=== PATIENT | male | born 1970 | race Caucasian/White ===

== ENCOUNTER 2016-06-14 20:34 | Emergency (ER) | payer SELFPAY ==
[2016-06-14 20:35] VITALS: BMI 25.7
[2016-06-14 21:24] VITALS: TEMP 98.6
--- NOTE | 2016-06-14 22:13 | EDPRACDOC ---
- General Information Chief Complaint: Generalized Weakness Stated Complaint: VISION CHANGES/NAUSEA Time Seen by Provider: 06/14/16 22:07 Information Source: Patient Mode of Arrival: Car Home Medications: Home Medications Citalopram (anti-depressant) [Celexa] 40 mg PO DAILY 11/18/13 Insulin Regular, Human [Novolin R] 6 unit SQ DAILY 11/18/13 Clopidogrel Bisulfate [Plavix] 75 mg PO DAILY 11/25/14 Metoprolol Tartrate 25 mg PO BID 11/25/14 Aspirin (Enteric Coated) [Ecotrin] 81 mg PO DAILY 12/24/14 Atorvastatin Calcium [Lipitor] 80 mg PO QHS 12/24/14 Lisinopril [Zestril] 2.5 mg PO DAILY 12/24/14 Nitroglycerin [Nitrostat] 0.4 mg SL Q5MX3 PRN 12/24/14 NPH, Human Insulin Isophane [Novolin N] 30 unit SQ DAILY 04/03/16 Biotin 1 mg PO DAILY 06/14/16 Cinnamon Bark [Cinnamon] 500 mg PO DAILY 06/14/16 Cyanocobalamin (Vitamin B-12) [Vitamin B-12 (cyanocobalamin)] 1,000 mcg SL DAILY 06/14/16 Ergocalciferol (Vitamin D2) [Vitamin D] 400 unit PO DAILY 06/14/16 [place]'s Wort 300 mg PO DAILY 06/14/16 Allergies/Adverse Reactions: Allergies Allergy/AdvReac Type Severity Reaction Status Date / Time No Known Allergies Allergy Verified 04/03/16 19:47 - History of Present Illness Onset: sailboat [employer] HPI: PT STARTED FEELING BAD ABOUT 1999 WHILE AT WORK. FELT LIKE BLOOD SUGAR WAS LOW. HAD VT IN 2013. PT HAD SOB. NAUSEA AND DIAPHORESIS. PT ATE 1530 BEFORE WORK (SOUP). LAST INSULIN 1720 - 6 REGULAR, 30 NPH. ED Past Medical History - Patient Medical History Cardiac History: Reports: Coronary Artery Disease, Hypertension, Heart Attack, Cardiac Catheterization, Hypercholesterolemia GI/ History: Reports: Pancreatitis Musculoskeletal History: Reports: Arthritis Psychological History: Reports: Depression, Bipolar Disorder Systemic History: Reports: Diabetes Surgical History: Reports: Cardiac Catheterization - Family Medical History Reports: Diabetes, Cancer. Denies: Hypertension, Stroke, Cardiac Disorders - Social Medical History Smoking Status: Never smoker - Physical Exam Constitutional: Other (GROGGY. MILD CONFUSION) Oriented to: Time, Person, Place Last recorded Vital Signs: Last Vital Signs Temp 98.6 F 06/14/16 21:20 Pulse 60 06/14/16 21:20 Resp 20 06/14/16 21:20 BP 156/82 06/14/16 21:20 Pulse Ox 100 06/14/16 21:20 Oxygen Pulse Oxygen Saturation 100 O2 Device Room Air Oxygen Flow Rate Fraction of Inspired Oxygen ( FIO2) - HEENT Head: Normal ( normocephalic) Eye Exam: Normal (PERRL, EOMI, Sclera white) Oropharynx: Normal (Pharynx:Moist without exudate,Gums-no swelling) Nose: No Symptoms Reported (septum midline) Neck: Normal (FROM, trachea at midline) - Respiratory/Cardiovascular Respiratory: Normal - CTA (BBS clear to auscultation without adventitious sounds ) Cardiovascular: Normal (RRR without murmur, gallop or rub) - GI Auscultation: Normal (NABS) Palpation: Normal (Soft,No rebound or guarding, non distended) Tenderness: Non tender Jung's Sign: Negative - Musculoskeletal Back: Normal (Non-Tender) Extremities: Normal (Normal tone, Pulses 2+ No cyanosis or edema, FROM) - Integumentary Skin: Normal, Warm, Dry Lymphatics: Normal (no adenopathy) - Neurologic Memory Impaired: Normal Motor Function: Normal (Normal tone, Pulses 2+ No cyanosis or edema, FROM) Cranial Nerve: Normal (CN II-X11 intact sensation, strength 5/5) Cerebellar: Normal Mood Description: Normal Perception: Normal - Results 06/14/16 01:30 06/14/16 01:30 POC Capillary Glucose 46 MG/DL (70-99) L* 06/14/16 21:17 Lab Results 06/14/16 21:17 POC Capillary Glucose 46 L* - EKG EKG #1 EKG Time: 22:35 -: Yes EKG interpreted by me Rate: bpm: 63 [place]: Normal Rhythm: NSR Block: None Hypertrophy: None ST: Normal Comments: LOW VOLTAGE QRS. NORMAL EKG Decision Time to Discharge: 03:22 - Departure Yes I personally saw and evaluated the patient. Disposition: Home Final Diagnosis: Hypoglycemia Instructions: Weakness (ED), Hypoglycemia in a Person with Diabetes (ED) Education/Counseling Given To: Patient Education/Counseling Given Regarding: Diagnosis Referrals: Prem Siddiqui MD [Primary Care Provider] - 1-2 days Prescriptions: No Action Insulin Regular, Human [Novolin R] 6 unit SQ DAILY Citalopram (anti-depressant) [Celexa] 40 mg PO DAILY Clopidogrel Bisulfate [Plavix] 75 mg PO DAILY Metoprolol Tartrate 25 mg PO BID Lisinopril [Zestril] 2.5 mg PO DAILY Atorvastatin Calcium [Lipitor] 80 mg PO QHS Aspirin (Enteric Coated) [Ecotrin] 81 mg PO DAILY Nitroglycerin [Nitrostat] 0.4 mg SL Q5MX3 PRN PRN Reason: Chest Pain Or Discomfort NPH, Human Insulin Isophane [Novolin N] 30 unit SQ DAILY Ergocalciferol (Vitamin D2) [Vitamin D] 400 unit PO DAILY Cyanocobalamin (Vitamin B-12) [Vitamin B-12 (cyanocobalamin)] 1,000 mcg SL DAILY [place]'s Wort 300 mg PO DAILY Cinnamon Bark [Cinnamon] 500 mg PO DAILY Biotin 1 mg PO DAILY
[2016-06-14] MEDS ORDERED: DEXTROSE 25 GM/50 ML PFS IV ONE (22:15)
[2016-06-14 22:29] LABS: AUTOMATED BASOPHIL 0.4 % (0-2); AUTOMATED EOSINOPHIL 1.5 % (0-5); AUTOMATED LYMPH 16.5 % (17-44); AUTOMATED MONOCYTE 9.1 % (3-10); AUTOMATED NEUTROPHIL 72.5 % (45-76); MPV 9.4 fL (7.4-10.4)
[2016-06-14 22:36] LABS: BLOOD UREA NITROGEN 15 MG/DL (9-20); CALCIUM 9.3 MG/DL (8.4-10.2); CALCULATED OSMOLALITY 268 MOs/Kg (270-290); CHLORIDE 103 mEq/L (98-107); PT-INR 1.1; SODIUM LEVEL 141 mEq/L (137-146); TOTAL PROTEIN 7.4 G/DL (6.3-8.2)
[2016-06-14 22:43] LABS: GLUCOSE 26 MG/DL (70-99)
--- NOTE | 2016-06-14 23:32 | DIRPT ---
CLINICAL DATA: Shortness of breath EXAM: PORTABLE CHEST 1 VIEW COMPARISON: 12/24/2014 FINDINGS: The heart size and mediastinal contours are within normal limits. Both lungs are clear. The visualized skeletal structures are unremarkable. IMPRESSION: No active disease. Electronically Signed By: Rolanda Bravo M.D. On: 06/14/2016 23:29
[2016-06-14] MEDS ORDERED: POTASSIUM CHLORIDE 20 MEQ TAB PO ONE (23:42)
[2016-06-15] MEDS ORDERED: NS 1,000 ML IV ONE (01:50)
[2016-06-15 03:02] LABS: LEUKOCYTES/URINE NEG (NEGATIVE); NITRITE/URINE NEG (NEGATIVE); URINE OCCULT BLOOD NEG (NEG/TRACE)
[2016-06-15 04:05] VITALS: BP 128/70; PULSE 64
== END 2016-06-15 03:58 | disposition home or self-care (01) ==
LOC: ED 20:34
DX: E11.649 Type 2 diabetes mellitus with hypoglycemia without coma (principal)
CPT/HCPCS: 36415; 71010; 80053; 81001; 82962; 84484; 85025; 85610; 85730; 93005; 96361; 96374; 99284; J3490; J7060